=== PATIENT | male | born 1945 | race Caucasian/White ===

== ENCOUNTER 2016-09-10 14:43 | Emergency (ER) | payer OTHER ==
[~2016-09-10] VITALS: Ht 170.2 cm; Wt 113.5 kg
[2016-09-10 14:46] VITALS: BP 126/64; PULSE 103; RESP 14; TEMP 98.2; O2SAT 95
[2016-09-10] MEDS ORDERED: FLUOCRE (16:39)
[2016-09-10] MEDS ORDERED: LISI-515 PO (16:39)
[2016-09-10] MEDS ORDERED: BUPR75TA PO (16:39)
--- NOTE | 2016-09-10 16:42 | PD ---
HPI Chief Complaint: Complaint Time Seen by Provider: 16:39 Travel History International Travel<30 days: No Contact w/Intl Traveler<30days: No Traveled to known affect area: No History of Present Illness HPI 70-year-old male presents to the emergency department for evaluation of left testicular pain that started 2 days ago, but worsened today. He also notes some discolored urine. He states the pain radiates up to his groin. He denies any fevers or chills. No chest pain or shortness breath. No abdominal pain. No vomiting. Patient reports history of hypertension, hyperglycemia, depression. He is currently on lisinopril and Wellbutrin. He denies any other complaints at this time. No penile discharge. [facility] Social History Alcohol Use: No Tobacco Use: No Substance Use: No Allergies-Medications (Allergen,Severity, Reaction): Coded Allergies: No Known Allergies (Unverified , 09/10/16) Reported Meds & Prescriptions Reported Meds & Active Scripts Active Lortab (Hydrocodone-Acetaminophen) 5-325 Mg Tab 1 Tab PO Q6H PRN Levaquin (Levofloxacin) 500 Mg Tab 500 Mg PO DAILY 10 Days Reported Fluocinonide-E Topical (Fluocinonide Emulsified Topical) 0.05% Cream Lisinopril 20 Mg Tab 20 Mg PO DAILY Bupropion HCl 75 Mg Tab 75 Mg PO DAILY Review of Systems General / Constitutional: Positive: Fever Physical Exam Narrative GENERAL: Well-developed well-nourished male patient, ambulatory. Afebrile. SKIN: Warm and dry. HEAD: Normocephalic. Atraumatic. EYES: No scleral icterus. No injection or drainage. NECK: Supple, trachea midline. No JVD or lymphadenopathy. CARDIOVASCULAR: Regular rate and rhythm without murmurs, gallops, or rubs. RESPIRATORY: Breath sounds equal bilaterally. No accessory muscle use. Lungs sounds are clear to auscultation. GASTROINTESTINAL: Abdomen soft, non-tender, nondistended. MUSCULOSKELETAL: No cyanosis, or edema. BACK: No CVA tenderness. No rash. GENITOURINARY: Circumcised. Testes descended bilaterally without evidence of rotation. No lesions or erythema. No urethral discharge. Left testicle is tender and swollen. exam was done with nurse at bedside. Data Data Last Documented VS Vital Signs Date Time Temp Pulse Resp B/P Pulse Ox O2 Delivery O2 Flow Rate FiO2 09/10/16 16:25 16 09/10/16 14:46 98.2 103 126/64 95 Orders Complete Blood Count With Diff (09/10/16 16:38) Comprehensive Metabolic Panel (09/10/16 16:38) Urinalysis - C+S If Indicated (09/10/16 16:38) Iv Access Insert/Monitor (09/10/16 16:38) Us Testicles W Doppler (09/10/16 ) Urine Culture (09/10/16 16:40) Levofloxacin (Levaquin) (09/10/16 18:30) Labs Laboratory Tests Test 09/10/16 16:40 White Blood Count 14.3 TH/MM3 Red Blood Count 4.63 MIL/MM3 Hemoglobin 14.5 GM/DL Hematocrit 42.1 % Mean Corpuscular Volume 90.9 FL Mean Corpuscular Hemoglobin 31.2 PG Mean Corpuscular Hemoglobin 34.3 % Concent Red Cell Distribution Width 13.4 % Platelet Count 200 TH/MM3 Mean Platelet Volume 8.7 FL Neutrophils (%) (Auto) 83.3 % Lymphocytes (%) (Auto) 9.2 % Monocytes (%) (Auto) 7.2 % Eosinophils (%) (Auto) 0.0 % Basophils (%) (Auto) 0.3 % Neutrophils # (Auto) 11.9 TH/MM3 Lymphocytes # (Auto) 1.3 TH/MM3 Monocytes # (Auto) 1.0 TH/MM3 Eosinophils # (Auto) 0.0 TH/MM3 Basophils # (Auto) 0.0 TH/MM3 CBC Comment DIFF FINAL Differential Comment Urine Color YELLOW Urine Turbidity HAZY Urine pH 5.5 Urine Specific [place] 1.027 Urine Protein TRACE mg/dL Urine Glucose (UA) NEG mg/dL Urine Ketones NEG mg/dL Urine Occult Blood MOD Urine Nitrite POS Urine Bilirubin NEG Urine Urobilinogen 2.0 MG/DL Urine Leukocyte Esterase LARGE Urine RBC 6 /hpf Urine WBC 58 /hpf Urine Bacteria MANY /hpf Urine Mucus FEW /lpf Microscopic Urinalysis Comment CULTURE INDICATED Sodium Level 136 MEQ/L Potassium Level 4.2 MEQ/L Chloride Level 104 MEQ/L Carbon Dioxide Level 23.2 MEQ/L Anion Gap 9 MEQ/L Blood Urea Nitrogen 17 MG/DL Creatinine 1.05 MG/DL Estimat Glomerular Filtration 70 ML/MIN Rate Random Glucose 108 MG/DL Calcium Level 9.0 MG/DL Total Bilirubin 0.8 MG/DL Aspartate Amino Transf 23 U/L (AST/SGOT) Alanine Aminotransferase 40 U/L (ALT/SGPT) Alkaline Phosphatase 88 U/L Total Protein 7.0 GM/DL Albumin 3.6 GM/DL [facility] Medical Decision Making Medical Screen Exam Complete: Yes Emergency Medical Condition: Yes Medical Record Reviewed: Yes Interpretation(s) Last Impressions Scrotum Ultrasound 09/10/16 0000 Signed Impressions: Service Date/Time: Saturday, September 10, 2016 17:03 - CONCLUSION: 1. The testicles are both within normal limits and with good blood flow. 2. Small bilateral hydroceles. 3. The left epididymis is mildly prominent with some increased blood flow which may represent some epididymitis. This needs to be correlated with patient's physical and clinical exam. Brody Oviedo MD Differential Diagnosis Epididymitis versus testicular torsion versus UTI Narrative Course 70-year-old male presents to the emergency department for evaluation of left testicular pain for 2 days, worsening today. CBC, CMP, UA are ordered and pending. Ultrasound of testicles are ordered and pending. CBC shows leukocytosis of 14.3. CMP shows no acute abnormality. UA shows moderate blood, positive nitrate, large leukocyte esterase, 50 WBC, many bacteria, culture is indicated. US testicles shows 1. The testicles are both within normal limits and with good blood flow. 2. Small bilateral hydroceles. 3. The left epididymis is mildly prominent with some increased blood flow which may represent some epididymitis. This needs to be correlated with patient's physical and clinical exam. I discussed my attending physician, Dr. Holley, who agrees on plan and disposition. Patient was started on Levaquin. He is given his first dose in the emergency department. He is instructed to return for any acute worsening of symptoms. The patient is agreeable to this plan. Patient is also requesting something for pain. He'll be discharged with a short-term prescription for Lortab. The patient was discharged in stable condition with instructions, including return instructions and follow up instructions. Diagnosis Primary Impression: Epididymitis, left Referrals: Urologist call for appointment Patient Instructions: Epididymitis (ED), General Instructions Additional Instructions: Take antibiotic as directed until gone. Scrotal elevation. Take Lortab as directed as needed for pain. Caution this can make you drowsy do not drive after taking. Follow-up with urologist. Return to the emergency department for any acute worsening of symptoms. Med/Other Pt SpecificInfo: Prescription(s) given Scripts Hydrocodone-Acetaminophen (Lortab)5-325 Mg Tab1 Tab PO Q6H PRN (PAIN) #16 TAB Ref 0 Prov:Evangelist Holley MD 09/10/16 Levofloxacin (Levaquin)500 Mg [id number] Mg PO DAILY 10 Days Ref 0 Prov:Mahi De La Cruz 09/10/16 Disposition: 01 DISCHARGE HOME Condition: Stable Mahi De La Cruz Sep 10, 2016 16:42
[2016-09-10 17:06] LABS: AUTOMATED NEUTROPHIL # 11.9 TH/MM3 (1.8-7.7); BASOPHIL % 0.3 % (0.0-2.0); HEMATOCRIT 42.1 % (39.0-51.0); HEMO FLAGS DIFF FINAL; LYMPH % 9.2 % (9.0-44.0); LYMPHOCYTE # 1.3 TH/MM3 (1.0-4.8); MEAN CELL VOLUME 90.9 FL (80.0-100.0); MEAN CORPUSCULAR HEMOGLOBIN 31.2 PG (27.0-34.0); MEAN CORPUSCULAR HGB CONC 34.3 % (32.0-36.0); MONO % 7.2 % (0.0-8.0); NEUT % 83.3 % (16.0-70.0); PLATELET COUNT 200 TH/MM3 (150-450); RED BLOOD COUNT 4.63 MIL/MM3 (4.50-5.90); RED CELL DISTRIBUTION WIDTH 13.4 % (11.6-17.2); WHITE BLOOD COUNT 14.3 TH/MM3 (4.0-11.0)
[2016-09-10 17:20] LABS: ALT (GPT) 40 U/L (12-78); ANION GAP 9 MEQ/L (5-15); AST (GOT) 23 U/L (15-37); BICARBONATE 23.2 MEQ/L (21.0-32.0); BLOOD UREA NITROGEN 17 MG/DL (7-18); CHLORIDE 104 MEQ/L (98-107); GLOMERULAR FILTRATION RATE 70 ML/MIN (>89); POTASSIUM 4.2 MEQ/L (3.5-5.1); SODIUM (NA) 136 MEQ/L (136-145)
[2016-09-10 17:22] LABS: ALKALINE PHOSPHATASE 88 U/L (45-117); TOTAL BILIRUBIN ADULT 0.8 MG/DL (0.2-1.0)
[2016-09-10 17:23] LABS: BACTERIA, URINE MANY /hpf; BLOOD, URINE MOD (NEG); COMMENT (UR) CULTURE INDICATED; CULTURE IF INDICATED CULTURE INDICATED; GLUCOSE,URINE NEG (NEG); KETONE, URINE NEG (NEG); MUCUS URINE FEW /lpf (OCC); PH, URINE 5.5 (5.0-8.5); URINE COLOR YELLOW (YELLW/STRAW)
[2016-09-10 17:25] LABS: NITRITE,URINE POS (NEG)
--- NOTE | 2016-09-10 17:55 | RADRPT ---
EXAM DATE/TIME: 09/10/2016 17:03 [place] COMPARISON: No previous studies available for comparison. INDICATIONS : Testicular pain. MEDICAL HISTORY : Hypertension. Hyperglycemia. Depression. SURGICAL HISTORY : None. ENCOUNTER: Initial ACUITY: 3 days PAIN SCORE: 5/10 LOCATION: Bilateral scrotum. MEASUREMENTS: RIGHT TESTICLE: 3.3 x 1.9 x 2.0cm LEFT TESTICLE: 2.8 x 3.5 x 2.3cm FINDINGS: RIGHT TESTICLE: Homogeneous echotexture without intra or extratesticular mass. Blood flow is symmetric and within no rmal limits. No varicocele. Epididymis is within normal limits. Small hydrocele. LEFT TESTICLE: Homogeneous echotexture without intra or extratesticular mass. Blood flow is symmetric and within no rmal limits. No varicocele. Epididymis is mildly prominent and demonstrates some increased vascular ity. There is a small hydrocele. SCROTUM: Within normal limits. CONCLUSION: 1. The testicles are both within normal limits and with good blood flow. 2. Small bilateral hydroceles. 3. The left epididymis is mildly prominent with some increased blood flow which may represent some ep ididymitis. This needs to be correlated with patient's physical and clinical exam. Brody Oviedo MD on September 10, 2016 at 17:51 Board Certified Radiologist. This report was verified electronically.
[2016-09-10] MEDS ORDERED: HYDR-3533 PO (18:26)
[2016-09-10] MEDS ORDERED: LEVA500T PO (18:26)
[2016-09-10] MEDS ORDERED: LEVOFLOXACIN 500 MG TAB PO ONE (18:30)
== END 2016-09-10 19:00 | disposition home or self-care (01) ==
LOC: NEPA 14:43
DX: N45.1 Epididymitis (principal); R82.99 Other abnormal findings in urine; B96.20 Unspecified Escherichia coli [E. coli] as the cause of diseases classified elsewhere; I10 Essential (primary) hypertension; R73.9 Hyperglycemia, unspecified; Z86.59 Personal history of other mental and behavioral disorders
CPT/HCPCS: 76870; 80053; 81001; 85025; 87077; 87086; 87186; 93975